=== PATIENT | male | born 1945 | race Caucasian/White ===

== ENCOUNTER → 2016-08-30 09:55 | Outpatient (CLI) | payer MEDICARE ==
[2016-07-30 02:46] VITALS: BMI 19.3
[~2016-08-30 09:55] MED LIST: AMLODIPINE PO; ASPIRIN81 MG PO; COREG6.25 MG PO; COUMADIN2.5 MG PO; MIRAPEX1 MG PO; NORVASC5 MG PO; OTHER MEDS PO; PEPCID40 MG PO; PLAVIX75 MG PO; RESTORIL15 MG PO; ROPINIROLE HCL2 MG PO; ROPINIROLE PO; TEMAZEPAM; WARFARIN PO; ZOLOFT100 MG PO
== END | disposition home or self-care (01) ==
LOC: D.RT 09:55
DX: R91.8 Other nonspecific abnormal finding of lung field (principal)

== ENCOUNTER → 2016-09-11 08:00 | Outpatient (CLI) | payer MEDICARE ==
[2016-07-30 02:46] VITALS: BMI 19.3
== END | disposition home or self-care (01) ==
LOC: D.NM 08:00
DX: C34.90 Malignant neoplasm of unspecified part of unspecified bronchus or lung (principal)

== ENCOUNTER → 2016-09-13 12:49 | Outpatient (CLI) | payer MEDICARE ==
[2016-07-30 02:46] VITALS: BMI 19.3
== END | disposition home or self-care (01) ==
LOC: D.RT 12:49
DX: J44.9 Chronic obstructive pulmonary disease, unspecified (principal)

== ENCOUNTER → 2016-10-03 13:41 | Outpatient (CLI) | payer MEDICARE ==
[2016-07-30 02:46] VITALS: BMI 19.3
== END | disposition home or self-care (01) ==
LOC: D.US 13:41
DX: I82.402 Acute embolism and thrombosis of unspecified deep veins of left lower extremity (principal); R60.0 Localized edema; M79.605 Pain in left leg

== ENCOUNTER 2016-11-14 16:31 | Emergency (ER) | payer MEDICARE ==
[2016-07-30 02:46] VITALS: BMI 19.3
[2016-11-14 17:17] LABS: BASOPHILS 0.3 % (0.0-2.0); EOSINOPHILS 3.7 % (0-7); HEMATOCRIT 34.6 % (42.0-54.0); HEMOGLOBIN 12.1 g/dL (13.5-17.5); IMMATURE GRANULOCYTES 0.3 % (0-5); LYMPHOCYTES 37.2 % (15-50); MCH 32.4 pg (26.0-34.0); MCV 92.5 fL (80.0-100.0); MEAN PLATELET VOLUME 9.8 fL (7.4-10.4); NEUTROPHILS 44.5 % (40-80); PLATELET COUNT 184 10x3/uL (130-400); RBC 3.74 10x6/uL (4.20-6.10); WBC 6.2 10x3/uL (4.8-10.8)
[2016-11-14 17:24] LABS: APTT 28.9 SECONDS (22.8-39.4); INR 1.46 (0.85-1.17); PROTIME 17.6 SECONDS (11.6-15.0)
[2016-11-14 17:33] LABS: ALBUMIN 3.8 g/dL (3.4-5.0); ANION GAP 14.6 mmol/L (8-16); BILIRUBIN - TOTAL 0.35 mg/dL (0.2-1.3); CALCIUM 8.5 mg/dL (8.5-10.1); CREATININE - SERUM 1.4 mg/dL (0.6-1.3); POTASSIUM - SERUM 3.6 mmol/L (3.5-5.1); PROTEIN - SERUM 6.9 g/dL (6.4-8.2)
== END 2016-11-14 19:15 | disposition home or self-care (01) ==
LOC: D.ER 16:31
PROVIDERS: Emergency Medicine
DX: K62.5 Hemorrhage of anus and rectum (principal)

== ENCOUNTER → 2016-12-02 08:57 | Outpatient (CLI) | payer MEDICARE ==
[2016-07-30 02:46] VITALS: BMI 19.3
== END | disposition home or self-care (01) ==
LOC: D.CT 08:57
DX: C34.31 Malignant neoplasm of lower lobe, right bronchus or lung (principal)

== ENCOUNTER → 2017-03-12 09:00 | Outpatient (CLI) | payer MEDICARE ==
[2016-07-30 02:46] VITALS: BMI 19.3
== END | disposition home or self-care (01) ==
LOC: D.CT 09:00
DX: C34.31 Malignant neoplasm of lower lobe, right bronchus or lung (principal)

== ENCOUNTER 2017-05-20 07:04 | Emergency (ER) | payer MEDICARE ==
[2016-07-30 02:46] VITALS: BMI 19.3
[2017-05-20 07:31] LABS: BASOPHILS 0.2 % (0-2); EOSINOPHILS 2.7 % (0-7); HEMATOCRIT 38.4 % (42.0-54.0); IMMATURE GRANULOCYTES 0.2 % (0-5); LYMPHOCYTES 25.2 % (15-50); MCH 32.3 pg (26.0-34.0); MCHC 33.9 g/dL (31.0-37.0); MCV 95.5 fL (80.0-100.0); MEAN PLATELET VOLUME 9.5 fL (7.4-10.4); MONOCYTES 10.8 % (2-11); NEUTROPHILS 60.9 % (40-80); PLATELET COUNT 148 10x3/uL (130-400); RBC 4.02 10x6/uL (4.20-6.10); RDW 13.8 % (11.5-14.5); WBC 5.9 10x3/uL (4.8-10.8)
[2017-05-20 07:47] LABS: ALBUMIN 3.4 g/dL (3.4-5.0); ALKALINE PHOSPHATASE 51 U/L (46-116); ALT (SGPT) 20 U/L (10-68); BILIRUBIN - TOTAL 0.34 mg/dL (0.2-1.3); CALC OSMOLALITY 278 mosm/kg (275-300); CALCIUM 8.5 mg/dL (8.5-10.1); CARBON DIOXIDE 30.3 mmol/L (21.0-32.0); CHLORIDE - SERUM 104 mmol/L (98-107); GLUCOSE 94 mg/dL (74-106); POTASSIUM - SERUM 4.3 mmol/L (3.5-5.1); PROTEIN - SERUM 6.4 g/dL (6.4-8.2); SODIUM 138 mmol/L (136-145); UREA NITROGEN 22 mg/dL (7-18); eGFR NON AFRICAN AMERICAN 78 mL/min (90-120)
[2017-05-20 07:53] LABS: APTT 31.9 SECONDS (22.8-39.4)
[2017-05-20 07:54] LABS: D-DIMER-QUANTITATIVE < 0.27 ug/mLFEU (0.20-0.54)
[2017-05-20 07:59] LABS: CHOL - HDL RATIO 2.9 ratio (2.3-4.9); CHOLESTEROL, TOTAL 199 mg/dL (0-200); CKMB 2.2 U/L (0.0-3.6); CREATINE KINASE 93 UL (21-232); HDL CHOLESTEROL 69 mg/dL (32-96); LDL CHOLESTEROL 118 mg/dL (0-100); LDL-HDL RATIO 1.7 ratio (1.5-3.5); TRIGLYCERIDE 61 mg/dL (30-200); TROPONIN-I 0.028 ng/mL (0.000-0.060)
== END 2017-05-20 10:17 | disposition home or self-care (01) ==
LOC: D.ER 07:04
PROVIDERS: Family Medicine
DX: R07.89 Other chest pain (principal); R09.1 Pleurisy; R07.9 Chest pain, unspecified; C34.90 Malignant neoplasm of unspecified part of unspecified bronchus or lung; F17.200 Nicotine dependence, unspecified, uncomplicated; R00.0 Tachycardia, unspecified; I44.0 Atrioventricular block, first degree; I49.3 Ventricular premature depolarization; I45.4 Nonspecific intraventricular block; K21.9 Gastro-esophageal reflux disease without esophagitis; Z95.0 Presence of cardiac pacemaker

== ENCOUNTER → 2017-11-24 15:52 | Outpatient (CLI) | payer MEDICARE ==
[2016-07-30 02:46] VITALS: BMI 19.3
== END | disposition home or self-care (01) ==
LOC: D.CT 15:52
DX: M25.561 Pain in right knee (principal)

== ENCOUNTER → 2018-03-12 10:11 | Outpatient (CLI) | payer MEDICARE ==
[2016-07-30 02:46] VITALS: BMI 19.3
== END | disposition home or self-care (01) ==
LOC: D.CT 10:11
DX: C34.31 Malignant neoplasm of lower lobe, right bronchus or lung (principal)

== ENCOUNTER → 2018-03-20 09:23 | Outpatient (CLI) | payer MEDICARE ==
[2016-07-30 02:46] VITALS: BMI 19.3
== END | disposition home or self-care (01) ==
LOC: D.CT 09:00
DX: C34.31 Malignant neoplasm of lower lobe, right bronchus or lung (principal)

== ENCOUNTER → 2018-04-14 14:15 | Outpatient (CLI) | payer MEDICARE ==
[2016-07-30 02:46] VITALS: BMI 19.3
== END | disposition home or self-care (01) ==
LOC: D.CT 14:15
DX: C34.31 Malignant neoplasm of lower lobe, right bronchus or lung (principal)

== ENCOUNTER → 2018-07-10 11:35 | Outpatient (CLI) | payer MEDICARE ==
[2016-07-30 02:46] VITALS: BMI 19.3
== END | disposition home or self-care (01) ==
LOC: D.CT 11:30
DX: C34.31 Malignant neoplasm of lower lobe, right bronchus or lung (principal)

== ENCOUNTER → 2018-09-02 12:23 | Outpatient (CLI) | payer MEDICARE ==
[2016-07-30 02:46] VITALS: BMI 19.3
== END | disposition home or self-care (01) ==
LOC: D.CT 12:23
DX: C34.31 Malignant neoplasm of lower lobe, right bronchus or lung (principal); J06.9 Acute upper respiratory infection, unspecified

== ENCOUNTER → 2018-10-28 10:13 | Outpatient (CLI) | payer MEDICARE ==
[2016-07-30 02:46] VITALS: BMI 19.3
--- NOTE | 2018-10-30 15:03 | ST ---
PATIENT:RAYA ALMANZAR MEDICAL RECORD: [id number] SEX: M LOCATION:[facility] ORDER #: ADMISSION DATE: 10/28/18 AGE OF PATIENT: 73 REFERRING PHYSICIAN: INTERPRETING PHYSICIAN: MANJULA ANDERSON MD DATE OF SERVICE: 10/28/2018 PROCEDURE: Nuclear stress test. INDICATION: Angina, coronary artery disease, shortness of breath, hypertension. He was exercised on standard Lexiscan protocol with 33 mCi of sestamibi injected at peak stress, 11 mCi were used previously for rest images. FINDINGS: Gated SPECT reveals preserved ejection fraction at 68% with decreased thickening and brightening throughout the inferior segments. SPECT imaging Cardiolite was used as myocardial perfusion agent. There is a fixed perfusion defect inferiorly compatible with the previous inferior myocardial infarction. No evidence of inducible ischemia and the remaining segments with homogeneous uptake at rest and stress. OVERALL IMPRESSION: This is an abnormal nuclear stress test, only in that there is a fixed perfusion defect inferiorly. No ongoing ischemic burden, ejection fraction preserved at 68%. Continue medical management of the coronary artery disease and cardiac risk factors. TRANSINT:[id number] Voice Confirmation ID: [id number] DOCUMENT ID: [id number] MANJULA ANDERSON MD at 1503 CC: [id number] DICTATION DATE: 10/28/18 1603 SOFTWARE ENGINEERING ANALYST: 10/29/18 0834 DEP CLI 10/28/18 [id number] [place] [address]
--- NOTE | 2018-10-30 15:03 | EC ---
PATIENT:RAYA ALMANZAR DATE OF SERVICE: 10/28/18 SEX: M MEDICAL RECORD: [id number] DATE OF : 43 LOCATION:[facility] AGE OF PATIENT: 73 ADMISSION DATE: 10/28/18 REFERRING PHYSICIAN: INTERPRETING PHYSICIAN: MANJULA TAMAYO MD ECHOCARDIOGRAM REPORT ECHO CHARGES 4 ECHO COMPLETE Date: 10/28/18 CLINICAL DIAGNOSIS: H/O CAD/A-FIB/PACEMAKER ECHOCARDIOGRAPHIC MEASUREMENTS (adult normal given) AC root (d.<3.7cm) 3.0 cm LV Septum d (<1.2 cm> 1.0 cm Valve Excursion 1.4 cm LV Septum (systole) 1.5 cm Left Atria (s.<4.0cm> 2.4 cm LVPW d(<1.2cm) 1.0 cm RV (d.<2.3cm) 2.1 cm LVPW (sytole) 1.7 cm LV diastole(<5.6CM) 4.2 cm MV E-F(>70mm/sec) cm LV systole 2.3 cm LVOT Diameter 1.8 cm MV exc.(>10mm) cm Est.ejection fraction (50-75%) % DOPPLER: LVIT cm/sec A 59.0 cm/sec E 35.0 cm/sec LA cm/sec RVSP 43.0 mmHg LVOT 84.0 cm/sec AOP1/2T m/s Asc. Ao 111 cm/sec RVOT 53.0 cm/sec RA cm/sec PA 45.0 cm/sec AV Gradient Peak 5.0 mmHg AV Mean 2.3 mmHg AV Area 1.9 cm MV Gradient Peak 2.1 mmHg MV Mean 0.73 mmHg MV Area cm COMMENTS: OP - Resident Hall Director: 1 STACY JENNINGS Directional Survey Drafter: 1 Dr. Tamayo TAPE# PACS Pericardial Effusion N DATE OF SERVICE: 10/28/2018 ECHOCARDIOGRAM DATE OF SERVICE: 10/28/2018 FINDINGS: 1. Left ventricular chamber size is mildly dilated. Left ventricular systolic function is miwc-cv-hrnkmehhep reduced, overall ejection fraction is 35%. 2. Left atrium, right atrium, and right ventricle chamber sizes are within ECHOCARDIOGRAM REPORT [id number] RAYA ALMNAZAR normal limits. 3. Valvular structures have normal structure and motion. 4. Doppler interrogation reveals moderate mitral regurgitation, xdlm-ab-szbabhys tricuspid regurgitation, no other valvular insufficiency or stenosis. Pulmonary systolic pressure is estimated at 43 mmHg. 5. No evidence of pericardial effusion or left ventricular thrombus. TRANSINT:[id number] Voice Confirmation ID: [id number] DOCUMENT ID: [id number] MANJULA TAMAYO MD at 1503 CC: [id number] DICTATION DATE: 10/28/18 1555 PACKER DRIED BEEF: 10/28/18 2305 DEP CLI 10/28/[address] [address]
== END | disposition home or self-care (01) ==
LOC: D.HCCARDIO 10:00
PROVIDERS: ATTEND Internal Medicine Interventional Cardiology
DX: R06.02 Shortness of breath (principal)

== ENCOUNTER → 2018-11-09 10:03 | Outpatient (CLI) | payer MEDICARE ==
[2016-07-30 02:46] VITALS: BMI 19.3
== END | disposition home or self-care (01) ==
LOC: D.RT 10:03
PROVIDERS: ATTEND Internal Medicine Pulmonary Disease
DX: J44.9 Chronic obstructive pulmonary disease, unspecified (principal)

== ENCOUNTER → 2019-03-17 10:15 | Outpatient (CLI) | payer MEDICARE ==
[2016-07-30 02:46] VITALS: BMI 19.3
[~2019-03-17 10:15] MED LIST changes: +BETAPACE 80 MG80 MG PO; +BREO ELLIPTA 11 EACH INH; +CLARITIN 10 MG10 MG PO; +DIFLUCAN50 MG PO; +HYDROCODON-ACE1 EA10 PO; +MAGNESIUM OXID250 MG PO; +MEGACE40 MG PO; +PROTONIX40 MG PO; +SINGULAIR10 MG PO
== END | disposition home or self-care (01) ==
LOC: D.HCCARDIO 10:15
PROVIDERS: ATTEND Internal Medicine Cardiovascular Disease
DX: I25.119 Atherosclerotic heart disease of native coronary artery with unspecified angina pectoris (principal)

== ENCOUNTER 2019-03-26 08:37 | Outpatient (CLI) | payer MEDICARE ==
[~2019-03-26] VITALS: Ht 175.3 cm; Wt 45.5 kg
--- NOTE | ~2019-03-26 | HEMODYNAMI ---
PATIENT:RAYA ALMANZAR MEDICAL RECORD: [id number] : 43 [facility] ADMISSION DATE: 03/26/19 Generatedon:03/26/201911:41 Patient name: RAYA ALMANZAR Patient #: [id number] : 1945 Date of study: 03/26/2019 Page: Of Hemodynamic Procedure Report Patient Data Patient Demographics Procedure consent was obtained First Name: RAYA Gender: Male Last Name: JENELLE : 1945 Middle Initial: RAY Age: 74 year(s) Patient #: [id number] Race: SSN: [id number] Additional ID: [id number] Contact details Address: [address] [address] State: [place] City: [place] Zip code: [address] Past Medical History Allergies: No known allergies Admission Admission Data Admission Date: 03/26/2019 Admission Time: 8:37 Arrival Date: 03/26/2019 Arrival Time: 10:30 Admit Source: Other Insurance Payor: Medicare Height (in.): 68 BSA: 1.57 (m2) Height (cm.): 172.72 BMI: 16.42 (kg/m2) Weight (lbs.): 108 Weight (kg.): 48.99 Lab Results Lab Result Date: 03/26/2019 Lab Result Time: 0:00 Biochemistry Name Units Result Min Max BUN mg/dl 31 --(----)-* 7 18 Creatinine mg/dl 1.4 --(----)*- 0.6 1.3 CBC Name Units Result Min Max Hemoglobin g/dl 11.5 *-(----)-- 13.5 17.5 Procedure Procedure Types Cath Procedure Diagnostic Procedure C LH w/Coronaries Sedation Charges Moderate Sedation up to 15 minutes Procedure Description Procedure Date Procedure Date: 03/26/2019 Procedure Start Time: 11:31 Procedure End Time: 11:40 Procedure Staff Name Function Jesse Tamayo MD Performing Physician Radha Sahni RT Monitor Irina Tejeda RT Scrub Ramana Luo RN Nurse Procedure Data Cath Procedure Fluoroscopy Diagnostic fluoroscopy Total fluoroscopy Time: 2.1 time: 2.1 min min Diagnostic fluoroscopy Total fluoroscopy dose: 307 dose: 307 mGy mGy Contrast Material Contrast Material Type Amount (ml) Isovue 300 72 Entry Location Entry Primary Successful Side Size Upsize Upsize Entry Closure Succes sful Closure Location (Fr) 1 (Fr) 2 (Fr) Remarks Device Remarks Femoral Right 5 Fr Exoseal artery Estimated blood loss: 5 ml Diagnostic catheters Device Type Used For End Catheter Placement MULTIPACK Pigtail 5 Fr LV Angiography catheter MULTIPACK JL 4.0 5Fr Left Coronary catheter Angiography DIAGNOSTIC AR2 MOD 5 Fr Multi-vessel catheter ([id number]) Angiography Procedure Complications No complications Procedure Medications Medication Administration Route Dosage 0.9% NaCl I.V. 100 ml/hr Oxygen etCO2 Nasal cannula 2 l/min Heparin Flush Bag added to field 2 bags (1000units/500ml NS) Lidocaine 2% added to field 20 Versed I.V. 2 mg Fentanyl I.V. 100 mcg Versed I.V. 1 mg Versed I.V. 0.5 mg Hemodynamics Rest BSA: 1.57 (m2) HGB: 11.5 (g/dl) O2 Consumption: Estimated: 168.62 (ml/min) O2 Co nsumption indexed: Estimated:107.4 (ml/min/m) Heart Rate: 50 (bpm) Pressure Samples Time Site Value (mmHg) Purpose Heart Use Rate(bpm) 11:33 LV 56/6,16 Snapshot 49 Snapshots Pre Cath Intra NCS Post Cath Vital Signs Time Heart Resp SPO2 etCO2 NIBP (mmHg) Rhythm Pain Sedation Rate (ipm) (%) (mmHg) Status Level (bpm) 10:11:19 64 13 100 13.5 153/87(116) Paced 0 (11) 10(A) , No pain 10:15:35 58 12 100 11.2 152/83(126) Paced 0 (11) 10(A) , No pain 10:19:47 60 13 100 31.5 153/91(136) Paced 0 (11) 10(A) , No pain 10:24:01 60 12 100 28.5 150/86(130) Paced 0 (11) 10(A) , No pain 10:28:11 60 13 100 28.5 154/93(135) Paced 0 (11) 10(A) , No pain 10:32:25 60 12 100 31.5 148/87(131) Paced 0 (11) 10(A) , No pain 10:36:35 60 13 100 1.5 148/86(119) Paced 0 (11) 10(A) , No pain 10:40:47 62 12 100 2.2 146/83(118) Paced 0 (11) 10(A) , No pain 10:44:56 60 14 100 1.5 147/82(110) Paced 0 (11) 10(A) , No pain 10:49:06 60 12 100 30.8 146/86(129) Paced 0 (11) 10(A) , No pain 10:53:14 71 13 100 28.5 152/89(101) Paced 0 (11) 10(A) , No pain 10:57:24 66 12 100 29.2 156/92(137) Paced 0 (11) 10(A) , No pain 11:01:38 64 12 100 32.3 149/86(124) Paced 0 (11) 10(A) , No pain 11:05:50 60 12 100 20.2 138/85(110) Paced 0 (11) 10(A) , No pain 11:09:58 68 12 100 29.2 133/82(107) Paced 0 (11) 10(A) , No pain 11:14:06 62 13 100 31.5 125/75(99) Paced 0 (11) 10(A) , No pain 11:18:09 61 11 100 28.5 139/79(102) Paced 0 (11) 10(A) , No pain 11:22:19 60 12 100 22.5 135/78(102) Paced 0 (11) 10(A) , No pain 11:26:29 60 13 100 35.3 132/74(97) Paced 0 (11) 10(A) , No pain 11:30:39 59 12 100 33.7 111/72(93) Paced 0 (11) 10(A) , No pain 11:34:41 69 19 100 33 117/73(95) Paced 0 (11) 9(A) , No pain 11:38:45 78 11 100 32.2 131/72(115) Paced 0 (11) 9(A) , No pain Medications Time Medication Route Dose Verified Delivered Reason Notes Eff ectiveness by by 10:07:32 0.9% NaCl I.V. 100 Ramana Ramana Per ml/hr Valerio Luo physician RN RN 10:07:44 Oxygen etCO2 2 Ramana Ramana for low 02 Nasal l/min Lorigan Lorsmitha sats cannula RN RN 10:07:58 Heparin Flush added 2 Ramana Ramana used for Bag to bags Lorigan Lorigan procedure (1000units/500ml field RN RN NS) 10:08:12 Lidocaine 2% added 20ml Ramana Ramana for local to vial Lorigan Lorigan anesthetic field RN RN 11:24:11 Versed I.V. 2 mg Ramana Ramana for Lorigan Lorigan sedation RN RN 11:24:19 Fentanyl I.V. 100 Ramana Ramana for mcg Lorigan Lorigan sedation RN RN 11:29:57 Versed I.V. 1 mg Ramana Ramana for Lorigan Lorigan sedation RN RN 11:31:29 Versed I.V. 0.5 Ramana Ramana for mg Lorigan Lorigan sedation RN internal combustion engine assembler Log Time Note 9:32:59 Informed consent obtained and on chart 9:33:03 Diagnostic Cath Status : Elective 9:36:01 Admit Source: Other 9:36:03 Arrival Date: 03/26/2019 10:30:00 AM 9:36:15 Insurance Payor : Medicare 9:36:21 Patient Height : 68 inches 9:36:23 Patient Weight : 108 lbs 9:47:30 ACC Patient presents with Stable Angina CCS Anginal Class 2--Slight limitation of ordinary activity. 9:47:33 ACCPatient has been prescribed/administered the following anti-anginal medication within the last 2 weeks: Beta Kris 9:47:37 Procedure Status Elective Heart Cath (OP). 9:47:40 Ramana Luo RN sent for patient. Start room use. 9:47:41 Time tracking: Regular hours (M-F 7:00 - 5:00) 9:47:45 Plan of Care:Hemodynamics will remain stable., Cardiac rhythm will remain stable., Comfort level will be maintained., Respiratory function will remain adequate., Patient/ family verbilizes understanding of procedure., Procedure tolerated without complication., Recovers from procedure without complications.. 9:57:05 Patient received from Pre/Post Procedure Room to CCL 2 Alert and oriented. Tansferred to table in Supine position. 9:57:07 Warm blankets applied, and simón hugger turned on for patient comfort. 9:57:07 Correct patient and procedure confirmed by team. 9:57:07 ECG and BP/O2 sat monitors applied to patient. 10:01:41 H&P Date Dictated: 03/08/2019 Within 30 days and on chart., H&P Addendum completed by physician on day of procedure. (MUST COMPLETE FOR ALL OUTPATIENTS). 10:01:43 Pre-procedure instructions explained to patient. 10:01:45 Family in waiting room. 10:01:46 Patient NPO since Midnight. 10:01:56 Patient allergic to No known allergies 10:01:59 Is the patient allergic to Iodine/contrast media? No. 10:02:01 Was the patient premedicated? Yes 10:02:17 Is patient on blood thinner?No 10:02:39 Patient diabetic? No. 10:02:42 Snore? Yes 10:02:44 Sleep apnea? No 10:02:49 Airway obstruction? Yes COPD 10:02:57 Dentures? Yes in tight 10:03:20 Lab results completed and on chart. 10:03:25 Right groin area was prepped with chlora-prep and draped in sterile fashion 10:03:29 Alarms reviewed by R. N. 10:03:29 Sharps counted by scrub and verified by R.N. 10:04:20 Pre procedure: right dorsailis pedis pulse 2+ Normal; easily identifiable; not easily obliterated 10:04:24 Pre procedure: left dorsailis pedis pulse 1+ Palpable, but thready & weak; easily obliterated 10:06:31 IV patent on arrival in left forearm with 0.9% NaCl at O. 10:07:32 0.9% NaCl 100 ml/hr I.V. was administered by Ramana Luo RN; Per physician; 10:07:44 Oxygen 2 l/min etCO2 Nasal cannula was administered by Ramana Luo RN; for low 02 sats; 10:07:58 Heparin Flush Bag (1000units/500ml NS) 2 bags added to field was administered by Ramana Luo RN; used for procedure; 10:08:12 Lidocaine 2% 20ml vial added to field was administered by Ramana Luo RN; for local anesthetic; ::19 Vital chart was started 10:11:05 Lab Result : BUN 31 mg/dl 10:11:05 Lab Result : Hemoglobin 11.5 g/dl 10:11:05 Lab Result : Creatinine 1.4 mg/dl 10:11:15 3a) 45-59 Moderately reduced kidney function. 10:11:34 Maximum allowable contrast dose (3.7 X eGFR X 0.75)144 ml. 11:18:09 Baseline sample Acquired. 11:22:45 Physician arrived ::45 --------ALL STOP TIME OUT------ 11::46 Final Timeout: patient, procedure, and site verified with staff and physician. All members of the team are in agreement. 11:22:47 Right groin site verified by team. 11:22:50 Fire Safety Assessment: A--An alcohol-based skin anteseptic being used preoperatively., C--Open oxygen or nitrous oxide is being used., D--An ESU, laser, or fiber-optic light is being used. 11:22:53 Physical assessment completed. ASA score P 2 - A patient with mild systemic disease as per Jesse Tamayo MD. 11:22:58 Sedation plan: IV Moderate Sedation Medication:Versed, Fentanyl 11:24:11 Versed 2 mg I.V. was administered by Ramana Luo RN; for sedation; :19 Fentanyl 100 mcg I.V. was administered by Ramana Luo RN; for sedation; 11:25:02 Use device set Femoral Dx 11:25:03 ACIST Syringe (93406) opened to sterile field. 11:25:03 Bag Decanter () opened to sterile field. 11:25:04 Medline Cath Pack ([id number]) opened to sterile field. 11:25:06 ACIST Hand Control (70896) opened to sterile field. 11:25:06 ACIST Manifold (94993) opened to sterile field. 11:25:07 DIAGNOSTIC Multipack 5Fr catheter set (CV3236) opened to sterile field. 11:25:07 Tegaderm 4 x 4 (1626W) opened to sterile field. 11:25:09 EMERALD Guide Wire (572-602) opened to sterile field. 11:25:09 SHEATH 5FR [place] (DZZ648) opened to sterile field. 11:29:57 Versed 1 mg I.V. was administered by Ramana Luo RN; for sedation; 11:30:20 Procedure started. 11:30:23 Full Disclosure recording started 11:31:11 Local anesthetic to right femoral artery with Lidocaine 2% by Jesse Tamayo MD.INITIAL ACCESS ONLY 11:31:28 A 5 Fr sheath was inserted into the Right Femoral artery 11:31:29 Versed 0.5 mg I.V. was administered by Ramana Luo RN; for sedation; 11:31:38 A MULTIPACK Pigtail 5 Fr catheter was advanced over the wire and used for LV Angiography. 11:31:42 Zero performed for pressure channel P1 11:33:13 LV hemodynamics recorded. 11:33:15 LV gram done using AYALA 11:33:19 Injector settings: Ml/sec: 5, Volume: 15, 11:33:31 EF : 70 % 11:33:39 Catheter removed. 11:33:45 A MULTIPACK JL 4.0 5Fr catheter was advanced over the wire and used for Left Coronary Angiography. 11:34:06 LCA angiography performed. 11:34:09 Injector settings: Ml/sec: 3, Volume: 6, 11:35:05 Catheter removed. 11:36:41 A DIAGNOSTIC AR2 MOD 5 Fr catheter ([id number]) was advanced over the wire and used for Multi-vessel Angiography. 11:37:17 SVG to LAD angiography performed. 11:37:30 RCA angiography performed. 11:37:32 Injector settings: Ml/sec: 3, Volume: 6, 11:37:37 Catheter removed. 11:37:38 ACCDominant side:Right 11:37:47 EXOSEAL 5Fr (EX500) opened to sterile field. 11:38:51 Sheath removed intact; hemostasis achieved with Exoseal to the Right Femoral artery. 11:38:58 Procedure ended.(Physican Out) 11:39:04 Fluoroscopy time 02.10 minutes. 11:39:08 Flurop Dose total: 307 11:39:08 Fluoroscopy dose: 307 mGy 11:39:19 Dose Area Product 80310 mGy/cm. 11:39:25 Contrast amount:Isovue 300 72ml. 11:39:27 Sharps counted by scrub and verified by R.N. 11:39:33 Post-op/insertion site Right Femoral artery dressed using a 4 x 4 and Tegaderm. 11:39:34 Post Procedure Pulses reassessed and unchanged 11:39:37 Post procedure rhythm: unchanged. 11:39:40 Estimated blood loss: 5 ml 11:39:42 Post procedure instruction explained to patient.Patient verbalizes understanding. 11:39:42 Patient needs reinforcement of post procedure teaching. 11:39:53 Procedure type changed to Cath procedure, Diagnostic procedure, LHC, LHC w/Coronaries, Sedation Charges, Moderate Sedation up to 15 minutes 11:39:54 Procedure and supply charges have been captured, reviewed, submitted and are correct. 11:40:04 Procedure Complication : No complications 11:40:08 Vital chart was stopped 11:40:08 See physician's report for complete and final results. 11:40:11 Report given to Pre/Post Procedure Room. 11:40:14 Patient transfered to Pre/Post Procedure Room with Stretcher. 11:40:19 Procedure ended. 11:40:19 Full Disclosure recording stopped 11:40:29 End room use (Document Last) Device Usage Item Name Manufacture Quantity Catalog Hospital Part Current Minimal L ot# / Number Charge Number Stock Stock Serial# Code ACIST Acist 1 [id number] 220072 188460 922292 20 Syringe Medical (26649) Systems Inc Bag Microtek 1 2001S 019370 79173 208817 5 Decanter Medical Inc. () Medline Medline 1 [id number] 903355 92673 992468 5 Cath Pack ([id number]) ACIST Hand Acist 1 72656 136909 321566 060749 5 Control Medical (73340) Systems Inc ACIST Acist 1 35054 001351 790429 873443 5 Manifold Medical (18724) Systems Inc DIAGNOSTIC Cardinal 1 [id number] 666131 39210 780297 30 Multipack ImageWare Systems 5Fr catheter set (YD0942) Tegaderm 4 3M 1 1626W 390487 383490 327818 5 x 4 (1626W) EMERALD Cardinal 1 502-455 490157 400158 433532 5 Guide Wire [facility] (823-327) SHEATH 5FR Terumo 1 KHX445 418316 426335 606350 5 [place] (CDV389) MULTIPACK Cardinal 1 393395 5 Pigtail 5 Health Fr catheter MULTIPACK Cardinal 1 307701 5 JL 4.0 5Fr Health catheter DIAGNOSTIC Cardinal 1 [id number] 729421 806035 574180 20 AR2 MOD 5 Health Fr catheter (016840B) EXOSEAL 5Fr Cardinal 1 EX500 609496 694764 388105 10 (EX500) Health Signature Audit [place] Stage Time Signature Unsigned Intra-Procedure 03/26/2019 Radha Sahni 11:41:27 AM RT(R) Signatures Performing Physician : Signature : Jesse Tamayo MD Date : Time : Monitor : Radha Sahni RT Signature : Date : Time : Nurse : Ramana Luo Signature : RN Date : Time : [id number] [place] [address]
[~2019-03-26 08:37] MED LIST changes: -BETAPACE 80 MG80 MG PO; -BREO ELLIPTA 11 EACH INH; -CLARITIN 10 MG10 MG PO; -DIFLUCAN50 MG PO; -HYDROCODON-ACE1 EA10 PO; -MAGNESIUM OXID250 MG PO; -MEGACE40 MG PO; -PROTONIX40 MG PO; -SINGULAIR10 MG PO
[2019-03-26] MEDS ORDERED: ZOLOFT100 MG PO ×2 (08:57→09:00)
[2019-03-26] MEDS ORDERED: PROTONIX40 MG PO (08:58)
[2019-03-26] MEDS ORDERED: BETAPACE 80 MG80 MG PO (08:58)
[2019-03-26] MEDS ORDERED: ROPINIROLE HCL2 MG PO (08:59)
[2019-03-26] MEDS ORDERED: SINGULAIR10 MG PO (08:59)
[2019-03-26] MEDS ORDERED: HYDROCODON-ACE1 EA10 PO (08:59)
[2019-03-26] MEDS ORDERED: CLARITIN 10 MG10 MG PO (09:00)
[2019-03-26] MEDS ORDERED: MAGNESIUM OXID250 MG PO (09:00)
[2019-03-26] MEDS ORDERED: MEGACE40 MG PO (09:01)
[2019-03-26] MEDS ORDERED: DIFLUCAN50 MG PO (09:01)
[2019-03-26] MEDS ORDERED: BREO ELLIPTA 11 EACH INH (09:01)
[2019-03-26 09:13] VITALS: BP 149/97; Ht 175.3 cm; Wt 45.5 kg
--- NOTE | 2019-03-26 09:15 | NUR ---
IV NS INFUSING AT 100CC/HR PER MD ORDER DUE TO CR OF 1.4.
[2019-03-26 09:22] LABS: BASOPHILS 0.2 % (0-2); EOSINOPHILS 2.4 % (0-7); HEMATOCRIT 32.8 % (42.0-54.0); HEMOGLOBIN 11.5 g/dL (13.5-17.5); IMMATURE GRANULOCYTES 0.2 % (0-5); LYMPHOCYTES 26.1 % (15-50); MCH 33.1 pg (26.0-34.0); MCHC 35.1 g/dL (31.0-37.0); MCV 94.5 fL (80.0-100.0); MEAN PLATELET VOLUME 9.4 fL (7.4-10.4); MONOCYTES 13.4 % (2-11); NEUTROPHILS 57.7 % (40-80); PLATELET COUNT 128 10x3/uL (130-400); RBC 3.47 10x6/uL (4.20-6.10); RDW 13.4 % (11.5-14.5); WBC 5.9 10x3/uL (4.8-10.8)
[2019-03-26 09:44] LABS: ANION GAP 11.6 mmol/L (8-16); CHOL - HDL RATIO 3.7 ratio (2.3-4.9); CREATININE - SERUM 1.4 mg/dL (0.6-1.3); LDL-HDL RATIO 2.3 ratio (1.5-3.5); POTASSIUM - SERUM 3.6 mmol/L (3.5-5.1)
--- NOTE | 2019-03-26 11:51 | NUR ---
PT ARRIVED BY STRETCHER. PLACED ON MONITORS. ASSESSMENT COMPLETED. RIGHT GROIN DRESSING C/D/I. NO S/S OF HEMATOMA NOTED. CALL LIGHT WITHIN REACH.
--- NOTE | 2019-03-26 12:06 | NUR ---
RIGHT GROIN DRESSING C/D/I. NO S/S OF HEMATOMA NOTED. CALL LIGHT WITHIN REACH. FAMILY AT BEDSIDE. RIGHT PEDAL PULSE PALPABLE. VSS.
--- NOTE | 2019-03-26 12:36 | NUR ---
RIGHT GROIN DRESSING C/D/I. NO S/S OF HEMATOMA NOTED. FAMILY AT BEDSIDE. CALL LIGHT WITHIN REACH. VSS. RIGHT PEDAL PULSE PALPABLE.
--- NOTE | 2019-03-26 12:40 | NUR ---
DR. ANDERSON AT BEDSIDE SPEAKING WITH PT AND PT'S FAMILY. FAMILY CONCERNED THAT PT HAS BEEN UNSTEADY ON HIS FEET AND REPORTED THAT A NURSE WHERE HE RECEIVES HIS TREATMENTS REPORTED THAT HE HAS BLOOD ON HIS EARDRUM, BUT THE "DIDN'T DO ANYTHING ABOUT IT". DR. ANDERSON REQUESTS THAT WE MAKE AN APPT WITH DR. PEREZ [facility].
--- NOTE | 2019-03-26 12:45 | NUR ---
HEAD OF BED INC TO 30 DEGREES. TOLERATED WELL. SET UP WITH SANDWICH TRAY AND DRINK. VSS. RIGHT GROIN DRESSING C/D/I. NO S/S OF HEMATOMA NOTED.
--- NOTE | 2019-03-26 12:58 | NUR ---
CALLED DR. PEREZ'S OFFICE AND THEY REPORT HE WILL NEED A REFERRAL FROM HIS PCP DR. CHAPARRO BECAUSE OF HIS INSURANCE BEING MEDICARE.
--- NOTE | 2019-03-26 13:01 | NUR ---
CALLED DR. CHAPARRO'S OFFICE AND SPOKE WITH ALBETRA. SHE STATES SHE WILL SEND A NOTE TO DR. CHAPARRO AND HIS NURSE TODAY AND THEY WILL FOLLOW UP WITH THE PATIENT.
--- NOTE | 2019-03-26 13:16 | NUR ---
LEFT ARM PIV D/C'D WITH CATH TIP INTACT. PT TOLERATED WELL. VSS. RIGHR GROIN DRESSING C/D/I. NO S/S OF HEMATOMA NOTED. CALL LIGHT WITHIN REACH. PT INSTRUCTED TO GET UP AND DRESSED. FAMILY AT BEDSIDE FOR ASSIST.
--- NOTE | 2019-03-26 13:30 | NUR ---
DISCUSSED DISCHARGE INSTRUCTIONS WITH PT AND PT'S FAMILY. THEY VOICED UNDERSTANDING. RIGHT GROIN DRESSING C/D/I. NO S/S OF HEMATOMA NOTED.
--- NOTE | 2019-03-26 13:40 | NUR ---
PT TAKEN OUT TO VEHICLE BY WHEELCHAIR. NO S/S OF DISTRESS NOTED. ALL BELONGINGS AND PAPERWORK IN HAND.
--- NOTE | 2019-03-30 11:09 | OP ---
PATIENT NAME: RAYA ALMANZAR MEDICAL RECORD: [id number] :43 LOCATION:[facility] ADMISSION DATE: SURGEON: MANJULA ANDERSON MD DATE OF OPERATION: 03/26/2019 DATE OF SERVICE: 03/26/2019 PROCEDURES: 1. Left heart catheterization. 2. Selective coronary angiography. 3. Left ventriculogram. 4. Vein graft angiography. INDICATION: Angina, coronary artery disease, abnormal nuclear stress test. PROCEDURE IN DETAIL: After informed consent was obtained and after a detailed description of risks, benefits as well as alternative therapies, the patient elected to proceed with angiogram and heart catheterization. The right femoral area was prepped and draped in normal sterile fashion. Right femoral artery was cannulated via modified Seldinger technique with placement of 5-Telugu sheath. All catheters exchanged through this sheath. FINDINGS: Left ventriculogram was performed in standard 30-degree AYALA view, reveals preserved cardiac wall motion, ejection fraction estimated at 65%. SELECTIVE CORONARY ANGIOGRAPHY: 1. Left main has no significant angiographic disease. 2. Left anterior descending has 90+ percent stenosis in the mid vessel. 3. Left circumflex has a chronic total occlusion proximally. 4. The right coronary has previously placed stent. This is widely patent with no significant restenosis. No disease elsewise of the RCA or its branches. 5. Vein graft to the distal LAD is widely patent. Distal LAD itself is widely patent as well. OVERALL IMPRESSION: Wide patency of the previously placed stent, wide patency of the previous vein grafts. Continue medical management of the coronary artery disease and cardiac risk factors. TRANSINT:[id number] Voice Confirmation ID: [id number] DOCUMENT ID: [id number] MANJULA ANDERSON MD at 1109 CC: [id number] DICTATION DATE: 03/26/19 1142 LOG DECKMAN: 03/26/19 1304 DEP CLI 03/26/19 [place] [id number]
== END 2019-03-26 13:40 | disposition home or self-care (01) ==
LOC: D.CATH 08:37
PROVIDERS: ATTEND Internal Medicine Interventional Cardiology
DX: I25.119 Atherosclerotic heart disease of native coronary artery with unspecified angina pectoris (principal); I25.82 Chronic total occlusion of coronary artery; R94.39 Abnormal result of other cardiovascular function study; Z01.812 Encounter for preprocedural laboratory examination

== ENCOUNTER → 2019-06-21 14:18 | Outpatient (CLI) | payer MEDICARE ==
[2019-03-26 09:13] VITALS: BMI 14.8
[~2019-06-21 14:18] MED LIST changes: +BETAPACE 80 MG80 MG PO; +BREO ELLIPTA 11 EACH INH; +CLARITIN 10 MG10 MG PO; +DIFLUCAN50 MG PO; +HYDROCODON-ACE1 EA10 PO; +MAGNESIUM OXID250 MG PO; +MEGACE40 MG PO; +PROTONIX40 MG PO; +SINGULAIR10 MG PO
== END | disposition home or self-care (01) ==
LOC: D.RAD 01-21 09:00 → D.RT 01-21 09:00 → D.RAD 01-21 10:00 → D.RT 06-18 13:00
PROVIDERS: ATTEND Internal Medicine Pulmonary Disease
DX: J44.9 Chronic obstructive pulmonary disease, unspecified (principal)

== ENCOUNTER → 2019-08-31 08:35 | Outpatient (CLI) | payer MEDICARE ==
[2019-03-26 09:13] VITALS: BMI 14.8
--- NOTE | 2019-09-02 12:54 | ST ---
PATIENT:RAYA ALMANZAR MEDICAL RECORD: [id number] SEX: M LOCATION:[facility] ORDER #: ADMISSION DATE: 08/31/19 AGE OF PATIENT: 74 REFERRING PHYSICIAN: INTERPRETING PHYSICIAN: MANJULA ANDERSON MD DATE OF SERVICE: 08/31/2019 PROCEDURE: Nuclear stress test. INDICATION: Angina and coronary artery disease. He was exercised on standard Lexiscan protocol with 33 mCi of sestamibi injected at peak stress, 11 mCi used previously for rest images. FINDINGS: Gated SPECT reveals a preserved ejection fraction at 66% with good wall motion and thickening and brightening throughout all segments. SPECT IMAGING: Cardiolite was used as myocardial perfusion agent. There is a large perfusion defect inferiorly, apically as well as septally. This is a mixed perfusion defect, partially fixed, partially reversible. This includes basal, mid, apical, inferior segments, apex itself, basal, mid, apical septal segments. The remaining segments are with homogeneous uptake in rest and stress. OVERALL IMPRESSION: This is an intermediate risk abnormal nuclear stress test with mixed perfusion defect inferiorly, apically, and septally, partially fixed, partially reversible. In this patient with ongoing symptomatology, the current scan does suggest the presence of hemodynamically significant coronary artery disease. TRANSINT:[id number] Voice Confirmation ID: [id number] DOCUMENT ID: [id number] MANJULA ANDERSON MD at 1254 CC: REYNALDO CHAPARRO [id number] DICTATION DATE: 08/31/19 1641 TELLERS SUPERVISOR: 09/01/19 0859 DEP CLI 08/31/19 [address] [place] [address]
== END | disposition home or self-care (01) ==
LOC: D.HCCARDIO 08:35
PROVIDERS: ATTEND Internal Medicine Interventional Cardiology
DX: I25.119 Atherosclerotic heart disease of native coronary artery with unspecified angina pectoris (principal)

== ENCOUNTER 2021-01-09 19:28 | Inpatient (IN) | payer MEDICARE, MEDICAID ==
[~2021-01-09] VITALS: Ht 175.3 cm; Wt 47.2 kg
--- NOTE | ~2021-01-09 | HEMODYNAMI ---
PATIENT:RAYA ALMANZAR MEDICAL RECORD: [id number] : 43 [facility]D D.2223 [id number] ADMISSION DATE: 01/09/21 Generatedon:115:51 Patient name: RAYA ALMANZAR Patient #: [id number] : 1945 Date of study: 01/11/2021 Page: Of Hemodynamic Procedure Report Patient Data Patient Demographics Procedure consent was obtained First Name: RAYA Gender: Male Last Name: JENELLE : 1945 Middle Initial: RAY Age: 75 year(s) Patient #: [id number] Race: SSN: [id number] Additional ID: [id number] Contact details Address: [place] [address] State: [place] City: [place] Zip code: [address] Past Medical History Allergies Allergen Reaction Date Comments Reported Other allergy 01/11/2021 NSAIDS, MORPHINE Admission Admission Data Admission Date: 01/09/2021 Admission Time: 19:28 Admit Source: Other Room #: D.2223 Lab Results Lab Result Date: 01/11/2021 Lab Result Time: 0:00 Biochemistry Name Units Result Min Max BUN mg/dl 21 --(----)-* 7 18 Creatinine mg/dl 1.2 --(---*)-- 0.6 1.3 eGFR ml/min 63 *-(----)-- 90 120 NONAFRICAN Procedure Procedure Types Cath Procedure Diagnostic Procedure LHC LHC w/Coronaries w/Grafts Sedation Charges Moderate Sedation 10-24 minutes Procedure Description Procedure Date Procedure Date: 01/11/2021 Procedure Start Time: 15:33 Procedure End Time: 15:48 Procedure Staff Name Function Teo Evans MD Performing Physician Ana Jones RT Monitor Radha Sahni RT Scrub Brad Quintana RN Nurse Procedure Data Cath Procedure Fluoroscopy Diagnostic fluoroscopy Total fluoroscopy Time: 2.6 time: 2.6 min min Diagnostic fluoroscopy Total fluoroscopy dose: 271 dose: 271 mGy mGy Contrast Material Contrast Material Type Amount (ml) Isovue 370 57 Entry Location Entry Primary Successful Side Size Upsize Upsize Entry Closure Succes sful Closure Location (Fr) 1 (Fr) 2 (Fr) Remarks Device Remarks Femoral Right 5 Fr Exoseal artery Estimated blood loss: 5 ml Diagnostic catheters Device Type Used For End Catheter Placement MULTIPACK JL 4.0 5Fr Procedure catheter MULTIPACK 3DRC 5Fr Procedure catheter MULTIPACK Pigtail 5 Fr Procedure catheter Procedure Complications No complications Procedure Medications Medication Administration Route Dosage 0.9% NaCl I.V. 100 ml/hr Oxygen etCO2 Nasal cannula 2 l/min Heparin Flush Bag added to field 2 bags (1000units/500ml NS) Lidocaine 2% added to field 20 Versed I.V. 1 mg Fentanyl I.V. 50 mcg Versed I.V. 1 mg Fentanyl I.V. 50 mcg Hemodynamics Rest Heart Rate: 68 (bpm) Pressure Samples Time Site Value (mmHg) Purpose Heart Use Rate(bpm) 15:41 LV 83/-7,0 Snapshot 80 Gradients Valve Time Site Site Mean SEP/DFP Peak To Heart Use 1 2 (mmHg) (sec/min) Peak Rate (mmHg) (bpm) Aortic 15:42 LV AO 63 Snapshots Pre Cath Intra NCS Post Cath Vital Signs Time Heart Resp SPO2 etCO2 NIBP Rhythm Pain Sedation Rate (ipm) (%) (mmHg) (mmHg) Status Level (bpm) 15:10:28 90 16 97 27.6 118/74(82) NSR 0 (11) 10(A) , No pain 15:14:34 100 17 97 27.6 106/70(79) NSR 0 (11) 10(A) , No pain 15:18:38 88 17 96 27.6 106/63(73) NSR 0 (11) 10(A) , No pain 15:22:41 89 10 95 29.1 102/60(70) NSR 0 (11) 10(A) , No pain 15:26:43 112 12 96 0.7 99/58(83) NSR 0 (11) 10(A) , No pain 15:30:43 70 11 99 29.1 109/66(78) NSR 0 (11) 10(A) , No pain 15:34:46 86 7 99 0.7 101/62(83) NSR 0 (11) 10(A) , No pain 15:38:50 85 7 99 9.7 107/60(75) NSR 0 (11) 10(A) , No pain 15:42:52 80 9 99 0.7 107/65(81) NSR 0 (11) 10(A) , No pain 15:46:58 77 12 99 29.8 103/59(89) NSR 0 (11) 10(A) , No pain Medications Time Medication Route Dose Verified Delivered Reason Notes Eff ectiveness by by 15:17:27 0.9% NaCl I.V. 100 Teo Brad used for ml/hr NathanRalph Quintana administrative resources associate 15:17:34 Oxygen etCO2 2 Teo Brad used for Nasal l/min Covington Mariano administrative resources associate cannula 15:17:42 Heparin Flush added 2 Teo Teo used for Bag to bags [facility] procedure (1000units/500ml field MD LONDONO NS) 15:17:50 Lidocaine 2% added 20ml Teo Teo for local to vial [facility] anesthetic field MD LONDONO 15:27:12 Versed I.V. 1 mg Teo Brad for [place]ovington Mariano RN sedation 15:27:18 Fentanyl I.V. 50 Teo Brad for mcg NathanRalph Quintana RN sedation 15:31:55 Versed I.V. 1 mg Teo Brad for [place] Mariano RN sedation 15:31:59 Fentanyl I.V. 50 Teo Brad for mcg [facility] RN sedation Procedure Log Time Note 14:42:46 Informed consent obtained and on chart 14:42:51 Diagnostic Cath Status : Urgent 14:44:41 Procedure Status Urgent Heart Cath (IP). 14:44:44 Time tracking: Regular hours (M-F 7:00 - 5:00) 14:44:49 Plan of Care:Hemodynamics will remain stable., Cardiac rhythm will remain stable., Comfort level will be maintained., Respiratory function will remain adequate., Patient/ family verbilizes understanding of procedure., Procedure tolerated without complication., Recovers from procedure without complications.. 14:46:43 Radha Sahni RT(R) sent for patient. Start room use. 14:49:01 H&P Date Dictated: 01/11/2021 ER History on chart.. 14:49:17 Patient allergic to Other allergyNSAIDS, MORPHINE 14:49:51 Lab Result : BUN 21 mg/dl 14:49:51 Lab Result : Creatinine 1.2 mg/dl 14:49:51 Lab Result : eGFR NONAFRICAN 63 ml/min 14:54:44 Admit Source: Other 14:54:47 ACC Patient presents with Non-STEMI CCS Anginal Class 2--Slight limitation of ordinary activity. 14:54:52 Patient NPO since Breakfast. 14:54:56 Alarms reviewed by R. N. 14:54:56 Sharps counted by scrub and verified by R.N. 14:54:59 Lab results completed and on chart. 14:55:03 Stress Test: no; N/A ? 14:56:49 Risk of Mortality: 8.5 14:56:52 Risk of blood transfusion: 13.6 14:56:56 Risk of MASHA: 7.1 15:06:49 Patient received from Med/Surg to CCL 1 Alert and oriented. Tansferred to table in Supine position. 15:06:50 Warm blankets applied, and simón hugger turned on for patient comfort. 15:06:51 Correct patient and procedure confirmed by team. 15:06:51 ECG and BP/O2 sat monitors applied to patient. 15:06:53 Full Disclosure recording started 15:06:54 Pre-procedure instructions explained to patient. 15:06:54 Pre-op teaching completed and patient verbalized understanding. 15:07:16 Family in patients room. 15:07:19 Is the patient allergic to Iodine/contrast media? No. 15:07:23 Was the patient premedicated? Yes 15:07:24 Is patient on blood thinner?Yes 15:07:27 ACC The patient was administered the following blood thiners within the last 24 hours: Xarelto 15:07:30 Patient diabetic? No. 15:07:32 ----Pre-sedation anethsthesia assessment.---- 15:07:35 Previous problem with sedation/anesthesia? No ? 15:07:36 Snore? Yes 15:07:37 Sleep apnea? No 15:07:38 Deviated septum? No 15:07:39 Opens mouth fully? Yes 15:07:40 Sticks out tongue? Yes 15:07:45 Airway obstruction? Yes COPD, CHF 15:07:48 Dentures? No ? 15:07:52 Patient pain scale 0/10 ?. 15:08:01 IV patent on arrival in Rt subclavian with 0.9% NaCl at O. 15:08:07 Right groin area was prepped with chlora-prep and draped in sterile fashion 15:08:09 Use device set Femoral Dx 15:08:11 ACIST Syringe (39023) opened to sterile field. 15:08:11 Bag Decanter (2002S) opened to sterile field. 15:08:12 Medline Cath Pack ([id number]) opened to sterile field. 15:08:13 ACIST Hand Control (47228) opened to sterile field. 15:08:13 ACIST Manifold (28649) opened to sterile field. 15:08:14 DIAGNOSTIC Multipack 5Fr catheter set (BI9239) opened to sterile field. 15:08:15 SHEATH 5FR [place] (SFR621) opened to sterile field. 15:08:16 EMERALD Guide Wire (381-840) opened to sterile field. 15:09:14 Tegaderm 4 x 4 (1626W) opened to sterile field. 15:09:19 Vital chart was started 15:09:22 Baseline sample Acquired. 15::28 Rhythm: paced 15:17:27 0.9% NaCl 100 ml/hr I.V. was administered by Brad Quintana RN; used for procedure; Verbal order read back and verified. 15:17:34 Oxygen 2 l/min etCO2 Nasal cannula was administered by Brad Quintana RN; used for procedure; Verbal order read back and verified. 15:17:42 Heparin Flush Bag (1000units/500ml NS) 2 bags added to field was administered by Teo Evans MD; used for procedure; Verbal order read back and verified. 15:17:50 Lidocaine 2% 20ml vial added to field was administered by Teo Evans MD; for local anesthetic; Verbal order read back and verified. 15:26:22 --------ALL STOP TIME OUT------ 15:26:23 Final Timeout: patient, procedure, and site verified with staff and physician. All members of the team are in agreement. 15:26:24 Right groin site verified by team. 15:26:28 Fire Safety Assessment: A--An alcohol-based skin anteseptic being used preoperatively., C--Open oxygen or nitrous oxide is being used., D--An ESU, laser, or fiber-optic light is being used. 15:26:32 Physical assessment completed. ASA score P 2 - A patient with mild systemic disease as per Teo Evans MD. 15:26:36 2) 60-89 Mildly reduced kidney function, and other findings (as for stage 1) point to kidney disease. 15:26:40 Maximum allowable contrast dose (3.7 X eGFR X 0.75)175 ml. 15:26:43 Sedation plan: IV Moderate Sedation Medication:Versed, Fentanyl 15:27:12 Versed 1 mg I.V. was administered by Brad Quintana RN; for sedation; Verbal order read back and verified. 15:27:18 Fentanyl 50 mcg I.V. was administered by Brad Quintana RN; for sedation; Verbal order read back and verified. 15:31:55 Versed 1 mg I.V. was administered by Brad Quintana RN; for sedation; Verbal order read back and verified. 15:31:59 Fentanyl 50 mcg I.V. was administered by Brad Quintana RN; for sedation; Verbal order read back and verified. 15:33:38 Procedure started. 15:33:41 Local anesthetic to right femoral artery with Lidocaine 2% by Teo Evans MD.INITIAL ACCESS ONLY 15:33:54 A 5 Fr sheath was inserted into the Right Femoral artery 15:34:05 A MULTIPACK JL 4.0 5Fr catheter was advanced over the wire and used for Procedure. 15:34:29 LCA angiography performed. 15:34:32 Injector settings: Ml/sec: 3, Volume: 6, 15:35:26 Catheter removed. 15:35:43 A MULTIPACK 3DRC 5Fr catheter was advanced over the wire and used for Procedure. 15:36:10 RCA angiography performed. 15:36:12 Injector settings: Ml/sec: 3, Volume: 6, 15:36:40 SVG to Circ angiography performed. 15:38:00 Injector settings: Ml/sec: 3, Volume: 6, 15:40:08 Catheter exchanged over wire. 15:41:36 A MULTIPACK Pigtail 5 Fr catheter was advanced over the wire and used for Procedure. 15:41:42 LV gram done using AYALA 15:41:51 Injector settings: Ml/sec: 5, Volume: 15, 15:41:52 LV hemodynamics recorded. 15:42:08 EF : 55 % 15:42:11 Catheter removed. 15:42:14 EXOSEAL 5Fr (EX500) opened to sterile field. 15:42:45 Sheath removed intact; hemostasis achieved with Exoseal to the Right Femoral artery. 15:43:10 Fluoroscopy time 02.60 minutes. 15:43:15 Fluoroscopy dose: 271 mGy 15:43:15 Flurop Dose total: 271 15:43:21 Dose Area Product 41359 mGy/cm. 15:43:23 Procedure ended.(Physican Out) 15:43:33 Contrast amount:Isovue 370 57ml. 15:43:36 Maximum allowable dose exceeded? No. 15:43:37 Sharps counted by scrub and verified by R.N. 15:44:21 Post-op/insertion site Right Femoral artery dressed using a 4 x 4 and Tegaderm. 15:46:01 Post right femoral artery:stable, soft, clean and dry 15:46:02 Post Procedure Pulses reassessed and unchanged 15:46:06 Post procedure: right dorsailis pedis pulse 2+ Normal; easily identifiable; not easily obliterated. 15:46:09 Post-procedure physical assessment completed. ASA score P 2 - A patient with mild systemic disease as per Teo Evans MD. 15:47:03 Post procedure rhythm: unchanged. 15:47:10 Estimated blood loss: 5 ml 15:47:11 Post procedure instruction explained to patient.Patient verbalizes understanding. 15:47:11 Patient needs reinforcement of post procedure teaching. 15:48:13 Procedure type changed to Cath procedure, Diagnostic procedure, LHC, LHC w/Coronaries w/Grafts, Sedation Charges, Moderate Sedation 10-24 minutes 15:48:28 Procedure and supply charges have been captured, reviewed, submitted and are correct. 15:48:32 Procedure Complication : No complications 15:48:34 Vital chart was stopped 15:48:36 [facility] Findings: mild to moderate CAD (<70%) 15:48:37 Operative report dictated upon procedure completion. 15:48:38 See physician's report for complete and final results. 15:48:40 Report given to Med/Surg. 15:48:44 Patient transfered to Med/Surg with Bed. 15:48:46 Procedure ended. 15:48:46 Full Disclosure recording stopped 15:48:58 End room use (Document Last) 15:49:08 End room use (Document Last) Device Usage Item Name Manufacture Quantity Catalog Hospital Part Current Minimal L ot# / Number Charge Number Stock Stock Serial# Code ACIST Acist 1 45704 248187 831825 558987 20 Syringe Medical (94421) Systems Inc Bag Microtek 1 928490 02102 721213 5 Decanter Medical Inc. () Medline Medline 1 [id number] 080293 02948 985255 5 Cath Pack ([id number]) ACIST Hand Acist 1 94260 808679 630542 734461 5 Control Medical (11923) Systems Inc ACIST Acist 1 05287 653504 777894 017026 5 Manifold Medical (37059) Systems Inc DIAGNOSTIC Cardinal 1 FL7133 100725 55307 752192 30 Multipack Health 5Fr catheter set (UH3062) SHEATH 5FR Terumo 1 XKU799 443612 349681 856896 5 [place] (HQQ959) EMERALD Cardinal 1 502-455 812538 439289 847090 5 Guide Wire [facility] (502-455) Tegaderm 4 3M 1 1626W 951296 062297 350446 5 x 4 (1626W) MULTIPACK Cardinal 1 380485 5 JL 4.0 5Fr Health catheter MULTIPACK Cardinal 1 600580 5 3DRC 5Fr Health catheter MULTIPACK Cardinal 1 326037 5 Pigtail 5 Health Fr catheter EXOSEAL 5Fr Cardinal 1 EX500 968125 078245 890931 10 (EX500) Health Signature Audit Wiggins Stage Time Signature Unsigned Intra-Procedure 01/11/2021 Ana Jones 3:49:08 PM RT(R) Intra-Procedure 01/11/2021 Brad Quintana RN 3:51:24 PM Intra-Procedure 01/11/2021 Teo Allen 3:51:39 PM Ralph LONDONO [id number] [place] [address]
--- NOTE | 2021-01-09 20:00 | NUR ---
PT BROUGHT TO FLOOR VIA WHEELCHAIR. DAUGHTER AT BEDSIDE. DAUGHTER STATES PT HAS BEEN MORE SHORT OF BREATH THIS WEEK AND CONFUSED AT TIME. STATES HE WAS DRIVING YESTERDAY AND GOT LOST WHICH IS UNLIKE HIM. SHE STATES HIS O2 WAS IN THE 70S AT THE DOCTORS OFFICE AND THAT IS WHY HE WAS SENT TO HOSPITAL TO BE ADMITTED. PT STATES HE HAD SOME CHEST PAIN ABOUT THREE DAYS AGO AND TOOK A NITRO AND IT RESOLVED. MED REC COMPLETED AT THIS TIME. CALLED DAINA KEY APN WHO CAME TO BEDSIDE AND SAW PT. DAINA STATED IT WAS OK TO USE RIGHT CHEST PORT AT THIS TIME. ACCESSED PORT WITH 20G 1 IN, SUCCESSFUL WITH ONE ATTEMPT. PT DID NOT WANT TO PUT ON GOWN AT THIS TIME, WANTS TO KEEP GOWN ON. PUT NON SLIP SOCKS ON. BED ALARM ON. SCDS ON BILAT. EDUCATED ON SCDS, VERBALIZED UNDERSTANDING. GAVE PT INCENTIVE SPIROMETER AND EDUCATED ON USE, PT VERBALIZED UNDERSTANDING AND DEMONSTRATED APPROPRIATE WAY TO USE. PROVIDED ICE WATER AT THIS TIME. PLACED PT ON 2L/NC PER DAINA KEY. TELE PLACED ON PT. PT AND DAUGHTER DENY FURTHER NEEDS. CL IN REACH
[2021-01-09 21:00] LABS: EOSINOPHILS 1.7 % (0-7); HEMATOCRIT 32.2 % (42.0-54.0); HEMOGLOBIN 10.7 g/dL (13.5-17.5); LYMPHOCYTES 18.2 % (15-50); MCH 31.1 pg (26.0-34.0); MCHC 33.2 g/dL (31.0-37.0); MCV 93.7 fL (80.0-100.0); MEAN PLATELET VOLUME 7.1 fL (7.4-10.4); MONOCYTES 9.8 % (2-11); NEUTROPHILS 69.3 % (40-80); PLATELET COUNT 149 10x3/uL (130-400); RBC 3.44 10x6/uL (4.20-6.10); RDW 16.4 % (11.5-14.5); WBC 5.8 10x3/uL (4.8-10.8)
[2021-01-09 21:20] LABS: ALBUMIN 3.1 g/dL (3.4-5.0); ALKALINE PHOSPHATASE 68 U/L (30-120); ALT (SGPT) 20 U/L (10-68); AMYLASE - SERUM 90 U/L (25-115); BILIRUBIN - TOTAL 0.43 mg/dL (0.2-1.3); CALC OSMOLALITY 290 mosm/kg (275-300); CALCIUM 8.3 mg/dL (8.5-10.1); CARBON DIOXIDE 30.9 mmol/L (21.0-32.0); CHLORIDE - SERUM 105 mmol/L (98-107); CKMB 1.3 U/L (0.0-3.6); CREATINE KINASE 50 UL (21-232); CREATININE - SERUM 1.2 mg/dL (0.6-1.3); GLUCOSE 108 mg/dL (74-106); LIPASE 81 U/L (73-393); POTASSIUM - SERUM 3.8 mmol/L (3.5-5.1); PROTEIN - SERUM 6.3 g/dL (6.4-8.2); SODIUM 143 mmol/L (136-145); UREA NITROGEN 26 mg/dL (7-18); eGFR NON AFRICAN AMERICAN 63 mL/min (90-120)
[2021-01-09 21:22] LABS: TROPONIN-I < 0.017 ng/mL (0.000-0.060)
[2021-01-09] MEDS ORDERED: BETAPACE 80 MG80 MG PO (22:38)
[2021-01-09] MEDS ORDERED: FLOMAX0.4 MG PO (22:40)
[2021-01-09] MEDS ORDERED: CLONIDINE HCL0.1 MG PO (22:41)
[2021-01-09] MEDS ORDERED: XARELTO20 MG PO (22:41)
[2021-01-09] MEDS ORDERED: FOLIC ACID1 MG PO (22:42)
[2021-01-09] MEDS ORDERED: IPRAT-ALBUT 0.5-3 ML UPD (22:43)
[2021-01-09] MEDS ORDERED: TRELEGY ELLIPT1 EACH INH (22:43)
[2021-01-09] MEDS ORDERED: SYMBICORT 80-10.2 GM INH (22:43)
[2021-01-09] MEDS ORDERED: LIPITOR40 MG PO (22:46)
[2021-01-09 23:46] VITALS: BP 120/82; BMI 16.2
[2021-01-10 00:33] VITALS: BP 83/52
[2021-01-10 04:00] VITALS: BP 104/61
[2021-01-10 07:25] LABS: CKMB 0.8 U/L (0.0-3.6); CREATINE KINASE 40 UL (21-232); TROPONIN-I < 0.017 ng/mL (0.000-0.060)
[2021-01-10 08:57] VITALS: BP 122/71
--- NOTE | 2021-01-10 09:00 | NUR ---
REC'D IN BED AWAKE AND ALERT. RESP EVEN AND UNLABORED WITH NO DISTRESS NOTED. CAN EXPRESS NEEDS AND WANTS. NO C/O NOTED OR VOICED. ASSESSMENT COMPLETED. C/L IN REACH.
[2021-01-10 14:04] VITALS: BMI 16.2
--- NOTE | 2021-01-10 14:44 | NUR ---
WAS MEDICATED WITH NORCO FOR GENERALIZED PAIN AT THIS TIME. C/L IN REACH AT BEDSIDE.
--- NOTE | 2021-01-10 15:00 | NUR ---
I have reviewed this patient and I concur with the Shift Assessment completed by the Licensed Practical Nurse today this shift.
[2021-01-10 15:33] VITALS: Ht 175.3 cm; Wt 47.2 kg
[2021-01-10 15:50] LABS: BASOPHILS 0.5 % (0-2); EOSINOPHILS 2.5 % (0-7); HEMATOCRIT 30.7 % (42.0-54.0); HEMOGLOBIN 9.9 g/dL (13.5-17.5); LYMPHOCYTES 21.1 % (15-50); MCH 30.4 pg (26.0-34.0); MCHC 32.2 g/dL (31.0-37.0); MCV 94.4 fL (80.0-100.0); MEAN PLATELET VOLUME 7.8 fL (7.4-10.4); MONOCYTES 10.3 % (2-11); NEUTROPHILS 65.6 % (40-80); PLATELET COUNT 136 10x3/uL (130-400); RBC 3.25 10x6/uL (4.20-6.10); RDW 16.4 % (11.5-14.5); WBC 4.9 10x3/uL (4.8-10.8)
[2021-01-10 16:06] LABS: CALCIUM 8.3 mg/dL (8.5-10.1); CHOL - HDL RATIO 2.1 ratio (2.3-4.9); CREATININE - SERUM 1.2 mg/dL (0.6-1.3); LDL-HDL RATIO 0.8 ratio (1.5-3.5)
[2021-01-10 17:08] VITALS: BP 104/64
[2021-01-10 19:45] VITALS: BP 114/75
--- NOTE | 2021-01-10 20:00 | NUR ---
PT SITTING UP IN BED WITHOUT DISTRESS, AOX4. DENIES NEEDS AT THIS TIME. CL IN REACH
[2021-01-11] VITALS (7 sets, daily range): BP systolic 91–141; BP diastolic 54–90
[2021-01-11 07:06] LABS: BASOPHILS 0.5 % (0-2); EOSINOPHILS 1.5 % (0-7); HEMATOCRIT 32.7 % (42.0-54.0); HEMOGLOBIN 10.9 g/dL (13.5-17.5); LYMPHOCYTES 17.3 % (15-50); MCH 31.2 pg (26.0-34.0); MCHC 33.4 g/dL (31.0-37.0); MCV 93.5 fL (80.0-100.0); MEAN PLATELET VOLUME 7.4 fL (7.4-10.4); MONOCYTES 11.8 % (2-11); NEUTROPHILS 68.9 % (40-80); PLATELET COUNT 149 10x3/uL (130-400); RDW 16.1 % (11.5-14.5)
[2021-01-11 07:07] LABS: WBC 6.3 10x3/uL (4.8-10.8)
[2021-01-11 07:27] LABS: ALBUMIN 2.9 g/dL (3.4-5.0); ANION GAP 8.5 mmol/L (8-16); BILIRUBIN - TOTAL 0.41 mg/dL (0.2-1.3); CALCIUM 8.8 mg/dL (8.5-10.1); CARBON DIOXIDE 32.5 mmol/L (21.0-32.0); CREATININE - SERUM 1.2 mg/dL (0.6-1.3); MAGNESIUM - SERUM 1.4 mg/dL (1.8-2.4); PHOSPHOROUS 3.5 mg/dL (2.5-4.9); PROTEIN - SERUM 6.2 g/dL (6.4-8.2)
--- NOTE | 2021-01-11 08:10 | NUR ---
ASSESSMENT PER FLOW SHEET. PATIENT IS WITHOUT DISTRESS.NPO AT 0800 FOR PROCEDURE TODAY. CONSENTS ON CHART AND PATIENT HAS HAD HEPI CLENS BATH. HE HAS ALSO BEEN CLIPPED BILAT GROINS ND RADIAL.
[2021-01-12] VITALS: BP 103/58
[2021-01-12 04:00] VITALS: BP 107/65
[2021-01-12 06:58] LABS: BASOPHILS 0.1 % (0-2); EOSINOPHILS 0 % (0-7); HEMATOCRIT 31.3 % (42.0-54.0); HEMOGLOBIN 10.4 g/dL (13.5-17.5); MCH 30.8 pg (26.0-34.0); MCHC 33.2 g/dL (31.0-37.0); MCV 92.9 fL (80.0-100.0); MEAN PLATELET VOLUME 7.6 fL (7.4-10.4); MONOCYTES 3.4 % (2-11); NEUTROPHILS 88.5 % (40-80); PLATELET COUNT 147 10x3/uL (130-400); RBC 3.37 10x6/uL (4.20-6.10); RDW 16.1 % (11.5-14.5)
[2021-01-12 07:01] LABS: WBC 12.4 10x3/uL (4.8-10.8)
[2021-01-12 07:03] LABS: ALBUMIN 2.8 g/dL (3.4-5.0); ANION GAP 8.2 mmol/L (8-16); BILIRUBIN - TOTAL 0.29 mg/dL (0.2-1.3); CALCIUM 8.8 mg/dL (8.5-10.1); CARBON DIOXIDE 30.2 mmol/L (21.0-32.0); CREATININE - SERUM 1.3 mg/dL (0.6-1.3); PHOSPHOROUS 3.6 mg/dL (2.5-4.9); POTASSIUM - SERUM 4.4 mmol/L (3.5-5.1); PROTEIN - SERUM 6.1 g/dL (6.4-8.2)
[2021-01-12 07:05] LABS: MAGNESIUM - SERUM 1.9 mg/dL (1.8-2.4)
[2021-01-12 07:49] VITALS: BP 149/90
--- NOTE | 2021-01-12 08:00 | NUR ---
ALERT AND ORIENTED. ASSESSMENT COMPLETE. DENIES NEEDS. BED LOW. CALL HAZEL AND PERSONAL ITEMS IN REACH. WILL CONTINUE TO MONITOR.
--- NOTE | 2021-01-12 09:25 | OP ---
PATIENT NAME: RAYA ALMANZAR MEDICAL RECORD: [id number] :43 LOCATION:D.MS Manuel2223 ADMISSION DATE:01/09/21 SURGEON: CLARISSE SY MD DATE OF OPERATION: 01/11/2021 PROCEDURES: Left heart catheterization, selective coronary angiography, right femoral artery approach. CATHETERS: A 5-Bengali sheath, 5/4 left and right Love, 5/4 pig. The procedure was well tolerated. The patient returned to the arrooy, sheath removed. Adequate hemostasis was obtained. CORONARY ANATOMY: 1. Left main: Left main is free of disease. 2. LAD: LAD fills for a short period of time and then is filling competitive flow via the saphenous vein graft to the circumflex. 3. Circumflex: The circumflex is totally occluded. 4. Right coronary artery is widely patent throughout its course. No evidence of restenosis and no evidence post-anastomotic stenosis. 5. Saphenous vein graft: Saphenous vein graft to the circ is widely patent and fills the LAD in a retrograde-retrograde fashion. LAWTON was injected. This is an atretic vessel. IMPRESSION: A totally occluded LAD and circumflex; however, these vessels fill well via the circumflex and saphenous vein graft. [place] right is widely patent. LV function remains normal. Continue medical management. TRANSINT:[id number] Voice Confirmation ID: [id number] DOCUMENT ID: [id number] CLARISSE SY MD at 0925 CC: [id number] DICTATION DATE: 01/11/21 1550 EMBEDDED SOFTWARE PROGRAMMER: 01/11/21 1713 ADM IN [id number] [place] [address]
--- NOTE | 2021-01-12 09:25 | EC ---
PATIENT:RAYA ALMANZAR DATE OF SERVICE: 01/09/21 SEX: M MEDICAL RECORD: [id number] DATE OF : [birth year] LOCATION:D.MS Nava AGE OF PATIENT: 75 ADMISSION DATE: 01/09/21 REFERRING PHYSICIAN: INTERPRETING PHYSICIAN: CLARISSE SY MD ECHOCARDIOGRAM REPORT ECHO CHARGES 4 ECHO COMPLETE Date: 01/10/21 CLINICAL DIAGNOSIS: PERICARDIAL EFFUSION ECHOCARDIOGRAPHIC MEASUREMENTS (adult normal given) AC root (d.<3.7cm) 2.7 cm LV Septum d (<1.2 cm> 1.5 cm Valve Excursion 1.6 cm LV Septum (systole) 1.6 cm Left Atria (s.<4.0cm> 3.1 cm LVPW d(<1.2cm) 1.0 cm RV (d.<2.3cm) 2.6 cm LVPW (sytole) 1.1 cm LV diastole(<5.6CM) 5.0 cm MV E-F(>70mm/sec) cm LV systole 3.9 cm LVOT Diameter 1.7 cm MV exc.(>10mm) 0.7 cm Est.ejection fraction (50-75%) % DOPPLER: LVIT cm/sec A 46 cm/sec E 65 cm/sec LA cm/sec RVSP 46 mmHg LVOT 74 cm/sec AOP1/2T m/s Asc. Ao 114 cm/sec RVOT 52 cm/sec RA cm/sec PA 84 cm/sec AV Gradient Peak 5.2 mmHg AV Mean 2.5 mmHg AV Area 1.6 cm MV Gradient Peak 3.8 mmHg MV Mean 1.1 mmHg MV Area cm COMMENTS: Network Controller: Raad MOSER Installation And Service Technician: 3 Dr. Ward TAPE# Pericardial Effusion N DATE OF SERVICE: Adequate 2D, color flow imaging, spectral Doppler, and M-Mode. FINDINGS: No LVH. LV internal dimension is normal. Wall motion is normal. EF is greater than or equal to 55%. Aortic valve is tricuspid. No evidence of stenosis by Doppler interrogation. Left atrium is normal. Mitral valve shows no prolapse. Trivial MR. Right side is grossly normal. Trivial TR. TRANSINT:[id number] Voice Confirmation ID: [id number] DOCUMENT ID: [id number] ECHOCARDIOGRAM REPORT [id number] RAYA ALMANZAR CLARISSE SY MD at 0925 CC: [id number] DICTATION DATE: 01/11/21 172 TRASH COLLECTOR TRUCK DRIVER: 01/11/211917 ADM IN [place] [address] [place] [id number]
[2021-01-12 09:51] VITALS: BP 149/50
[2021-01-12] MEDS ORDERED: MUCINEX600 MG PO (11:53)
[2021-01-12] MEDS ORDERED: TESSALON PERLE100 MG PO (11:53)
[2021-01-12] MEDS ORDERED: FLUTICASONE PRO16 GM NASAL (11:53)
[2021-01-12] MEDS ORDERED: OMNICEF300 MG PO (11:54)
[2021-01-12] MEDS ORDERED: PREDNISONE10 MG PO (11:54)
[2021-01-12] MEDS ORDERED: FLORAJEN DIGES1 EACH PO (11:54)
[2021-01-12] MEDS ORDERED: KENALOG 0.1 % 115 GM TOPICAL (11:54)
[2021-01-12 11:55] VITALS: BP 142/81
[2021-01-12] MEDS ORDERED: Vibramycin 100 MG/D5 IV (11:55)
--- NOTE | 2021-01-12 12:08 | NUR ---
PATIENT O2 SAT 98% RESTING ON ROOM AIR. SAT 94% UP WALKING UNIT ON ROOM AIR.
[2021-01-12] MEDS ORDERED: DOXYCYCLINE HY100 M2 PO (12:23)
[2021-01-12 12:51] VITALS: BP 142/81
--- NOTE | 2021-01-12 13:35 | MORECARE ---
CASE MANAGEMENT DISCHARGE SUMMARY PATIENT: RAYA ALMANZAR UNIT: [id number] ADM DATE: 01/09/21 AGE: 75 : 44 SEX: M ROOM/BED: D.2223 AUTHOR: BRIAN,DOC PHYSICIAN: REFERRING PHYSICIAN: REYNALDO CHAPARRO MD DATE OF SERVICE: 01/12/21 Case Management Discharge Planning Summary DCP REVIEW SUMMARY ANTICIPATED D/C DATE: EXPECTED LOS : CASE STATUS: DCP Initiated INITIAL REVIEW: 01/09/2021 INITIAL REVIEWER: Moon Perez FINAL DISCHARGE DISPOSITION: : FINAL REVIEWER: FINAL REVIEW DATE: DCP Focus Questions & Answers DCP Screen QUESTION: ANSWER High Risk Factors: : Polypharmacy (greater than 10 meds) DCP Evaluation QUESTION: ANSWER Patient's ability to cope with chronic illness : d. No chronic illness Would patient like to participate in any Care Coordination programs (if applicable): : Not applicable Mental health screen: : No mental health history DCP Re-evaluation QUESTION: ANSWER Would patient like to participate in any Care Coordination programs (if applicable): : Not applicable PATIENT: RAYA ALMANZAR ENCOUNTER: [id number] MEDICAL RECORD#: [id number] ADMISSION DATE: 01/09/2021 DISCHARGE DATE: ATTENDING MD: REYNALDO KILLIAN : AGE: 75 MARITAL STATUS: S DC PLAN ID: [id number] FACILITY: [facility] PRINTED ON: 01/12/21 13:35 CT All edits/amendments must be made on the electronic document DICTATION DATE: 01/12/211334 FUNERAL HOME MANAGER: ALMA RSOA 01/12/21 1335 RPT#: [id number] DC DATE: STATUS: ADM IN [facility] [address] [place] [address] END OF REPORT
--- NOTE | 2021-01-12 13:47 | MORECARE ---
CASE MANAGEMENT DISCHARGE SUMMARY PATIENT: RAYA ALMANZAR UNIT: [id number] ADM DATE: 01/09/21 AGE: 75 : 44 SEX: M ROOM/BED: D.2223 AUTHOR: BRIAN,DOC PHYSICIAN: REFERRING PHYSICIAN: REYNALDO CHAPARRO MD DATE OF SERVICE: 01/12/21 Case Management Discharge Planning Summary COMMENTS ENTERED DATE: 01/12/21 13:34 CT COMMENT TYPE: Discharge Planning REVIEWER: Moon Perez CM met with patient at bedside after obtaining verbal consent. CM discussed availability / needs of home health, REHAB and medical equipment. Patient is dressed and ready to dc to home. Patient states has all medical equipment needed and is current with home health. Did not say which home health. IMM signed and copy placed on chart. DCP REVIEW SUMMARY ANTICIPATED D/C DATE: EXPECTED LOS : CASE STATUS: DCP Initiated INITIAL REVIEW: 01/09/2021 INITIAL REVIEWER: Moon Perez FINAL DISCHARGE DISPOSITION: : FINAL REVIEWER: FINAL REVIEW DATE: DCP Focus Questions & Answers DCP Screen QUESTION: ANSWER High Risk Factors: : Polypharmacy (greater than 10 meds) DCP Evaluation QUESTION: ANSWER Patient's ability to cope with chronic illness : d. No chronic illness Would patient like to participate in any Care Coordination programs (if applicable): : Not applicable Mental health screen: : No mental health history DCP Re-evaluation QUESTION: ANSWER Would patient like to participate in any Care Coordination programs (if applicable): : Not applicable PATIENT: RAYA ALMANZAR ENCOUNTER: [id number] MEDICAL RECORD#: [id number] ADMISSION DATE: 01/09/2021 DISCHARGE DATE: ATTENDING MD: REYNALDO KILLIAN : AGE: 75 MARITAL STATUS: S DC PLAN ID: [id number] FACILITY: [facility] PRINTED ON: 01/12/21 13:47 CT All edits/amendments must be made on the electronic document DICTATION DATE: 01/12/211346 CUT OFF MACHINE UNLOADER: ALMA ROSA 01/12/211346 RPT#: [id number] DC DATE: STATUS: ADM IN [facility] [address] [place] [address] END OF REPORT
--- NOTE | 2021-01-12 14:01 | NUR ---
DC EDUCATION PROVIDED BOTH WRITTEN AND VERBAL. VERBALIZED UNDERSTANDING. DENIES FURTHER QUESTIONS OR CONCERNS. PORT DEACCESSED FOR DC. PATIENT DC HOME WITH DAUGHTER WITH ALL BELONGINGS.
--- NOTE | 2021-01-15 13:59 | MORECARE ---
CASE MANAGEMENT DISCHARGE SUMMARY PATIENT: RAYA ALMANZAR UNIT: [id number] ADM DATE: 01/09/21 AGE: 75 : 43 SEX: M ROOM/BED: D.2223 AUTHOR: BRIAN,DOC PHYSICIAN: REFERRING PHYSICIAN: REYNALDO CHAPARRO MD DATE OF SERVICE: 01/15/21 Case Management Discharge Planning Summary COMMENTS ENTERED DATE: 01/12/21 13:34 CT COMMENT TYPE: Discharge Planning REVIEWER: Moon Perez CM met with patient at bedside after obtaining verbal consent. CM discussed availability / needs of home health, REHAB and medical equipment. Patient is dressed and ready to dc to home. Patient states has all medical equipment needed and is current with home health. Did not say which home health. IMM signed and copy placed on chart. DCP REVIEW SUMMARY ANTICIPATED D/C DATE: EXPECTED LOS : CASE STATUS: DCP Initiated INITIAL REVIEW: 01/09/2021 INITIAL REVIEWER: Moon Perez FINAL DISCHARGE DISPOSITION: : FINAL REVIEWER: FINAL REVIEW DATE: DCP Focus Questions & Answers DCP Screen QUESTION: ANSWER High Risk Factors: : Polypharmacy (greater than 10 meds) DCP Evaluation QUESTION: ANSWER Patient's ability to cope with chronic illness : d. No chronic illness Would patient like to participate in any Care Coordination programs (if applicable): : Not applicable Mental health screen: : No mental health history DCP Re-evaluation QUESTION: ANSWER Would patient like to participate in any Care Coordination programs (if applicable): : Not applicable PATIENT: RAYA ALMANZAR ENCOUNTER: [id number] MEDICAL RECORD#: [id number] ADMISSION DATE: 01/09/2021 DISCHARGE DATE: 01/12/2021 ATTENDING MD: REYNALDO KILLIAN : [birth year] AGE: 75 MARITAL STATUS: S DC PLAN ID: [id number] FACILITY: [facility] PRINTED ON: 01/15/21 13:59 CT All edits/amendments must be made on the electronic document DICTATION DATE: 01/15/211358 DATA WAREHOUSE DEVELOPER: ALMA ROSA 01/15/21 135 RPT#: [id number] DC DATE:01/12/21 STATUS: DIS IN [place] [id number] [place] [address] END OF REPORT
--- NOTE | 2021-01-16 10:26 | MORECARE ---
CASE MANAGEMENT DISCHARGE SUMMARY PATIENT: RAYA ALMANZAR UNIT: [id number] ADM DATE: 01/09/21 AGE: 75 : 43 SEX: M ROOM/BED: D.2223 AUTHOR: BRIAN,DOC PHYSICIAN: REFERRING PHYSICIAN: REYNALDO CHAPARRO MD DATE OF SERVICE: 01/16/21 Case Management Discharge Planning Summary COMMENTS ENTERED DATE: 01/12/21 13:34 CT COMMENT TYPE: Discharge Planning REVIEWER: Moon Perez CM met with patient at bedside after obtaining verbal consent. CM discussed availability / needs of home health, REHAB and medical equipment. Patient is dressed and ready to dc to home. Patient states has all medical equipment needed and is current with home health. Did not say which home health. IMM signed and copy placed on chart. DCP REVIEW SUMMARY ANTICIPATED D/C DATE: EXPECTED LOS : CASE STATUS: DCP Initiated INITIAL REVIEW: 01/09/2021 INITIAL REVIEWER: Moon Perez FINAL DISCHARGE DISPOSITION: : FINAL REVIEWER: FINAL REVIEW DATE: DCP Focus Questions & Answers DCP Screen QUESTION: ANSWER High Risk Factors: : Polypharmacy (greater than 10 meds) DCP Evaluation QUESTION: ANSWER Patient's ability to cope with chronic illness : d. No chronic illness Would patient like to participate in any Care Coordination programs (if applicable): : Not applicable Mental health screen: : No mental health history DCP Re-evaluation QUESTION: ANSWER Would patient like to participate in any Care Coordination programs (if applicable): : Not applicable PATIENT: RAYA ALMANZAR ENCOUNTER: [id number] MEDICAL RECORD#: [id number] ADMISSION DATE: 01/09/2021 DISCHARGE DATE: 01/12/2021 ATTENDING MD: REYNALDO KILLIAN : [birth year] AGE: 75 MARITAL STATUS: S DC PLAN ID: [id number] FACILITY: [facility] PRINTED ON: 01/16/21 10:25 CT All edits/amendments must be made on the electronic document DICTATION DATE: 01/16/21 1025 PRINCIPAL IOS DEVELOPER: ALMA ROSA 01/16/21 1025 RPT#: [id number] DC DATE:01/12/21 STATUS: DIS IN [facility] [address] [place] [address] END OF REPORT
== END 2021-01-12 14:02 | disposition home health service (06) | DRG 189 ==
LOC: D.MS 19:28
PROVIDERS: Emergency Medicine; Internal Medicine Interventional Cardiology; ADMIT Family Medicine; ATTEND Family Medicine
PROC: B2151ZZ Fluoroscopy of Left Heart using Low Osmolar Contrast (ICD-10-PCS; 2021-01-11)
PROC: 4A023N7 Measurement of Cardiac Sampling and Pressure, Left Heart, Percutaneous Approach (ICD-10-PCS; 2021-01-11)
PROC: B2111ZZ Fluoroscopy of Multiple Coronary Arteries using Low Osmolar Contrast (ICD-10-PCS; principal; 2021-01-11 14:00)
DX: J96.21 Acute and chronic respiratory failure with hypoxia (principal); E43 Unspecified severe protein-calorie malnutrition; I13.0 Hypertensive heart and chronic kidney disease with heart failure and stage 1 through stage 4 chronic kidney disease, or unspecified chronic kidney disease; Z68.1 Body mass index [BMI] 19.9 or less, adult; I50.22 Chronic systolic (congestive) heart failure; C34.90 Malignant neoplasm of unspecified part of unspecified bronchus or lung; I25.10 Atherosclerotic heart disease of native coronary artery without angina pectoris; I48.0 Paroxysmal atrial fibrillation; Z86.711 Personal history of pulmonary embolism; Z79.01 Long term (current) use of anticoagulants; Z95.0 Presence of cardiac pacemaker; J44.9 Chronic obstructive pulmonary disease, unspecified; N18.9 Chronic kidney disease, unspecified; G89.29 Other chronic pain; N40.0 Benign prostatic hyperplasia without lower urinary tract symptoms; F32.9 Major depressive disorder, single episode, unspecified; G25.81 Restless legs syndrome; I49.5 Sick sinus syndrome; C80.1 Malignant (primary) neoplasm, unspecified; R53.81 Other malaise; R21 Rash and other nonspecific skin eruption